=== PATIENT | male | born 1995 | race Caucasian/White ===

== ENCOUNTER 2022-01-17 12:09 | Emergency (ER) | payer OTHER ==
[2022-01-17] MEDS ORDERED: Ketorolac Tromethamine 30 MG/ML VIAL ONE (12:46)
== END 2022-01-17 13:45 | disposition home or self-care (01) ==
LOC: ERS 12:09
DX: M54.50 Low back pain, unspecified (principal)
CPT/HCPCS: 96372; 99283; J1885

== ENCOUNTER 2022-12-05 06:47 | Emergency (ER) | payer OTHER | END 2022-12-05 09:24 | disposition home or self-care (01) | LOC: ERS 06:47 | DX: M54.2 Cervicalgia (principal); G93.0 Cerebral cysts; V89.2XXA Person injured in unspecified motor-vehicle accident, traffic, initial encounter | CPT/HCPCS: 70450; 71045; 72125; G0390 ==